=== PATIENT | female | born 1965 | race Caucasian/White ===

== ENCOUNTER → 2017-08-05 | Outpatient (CLI) | payer BC ==
--- NOTE | 2017-08-13 08:19 | MAMMOGRAPHY REPORT ---
BILATERAL DIGITAL DIAGNOSTIC MAMMOGRAM TOMOSYNTHESIS WITH CAD AND TARGETED RIGHT ULTRASOUND: 08/05/20 17 CLINICAL HISTORY: 52-year-old woman presents for follow-up in both breasts. She is status post ultra sound-guided cyst aspiration in the left 12:00 breast. She also presents for follow-up of benign-deborah earing complicated cyst in the 6:30 and 9:30 to 10:00 right breast. TECHNIQUE: Bilateral breast tomosynthesis in addition to standard 2D mammography was performed. Curre nt study was also evaluated with a Computer Aided Detection (CAD) system. COMPARISON: Comparison is made to exams dated: 08/05/2017 ultrasound, 04/28/2016 aspiration, 6 mammogram, 04/28/2016 ultrasound, 10/26/2015 mammogram - [facility], and 04/24/2015 mammogram. BREAST COMPOSITION: There are scattered areas of fibroglandular density in both breasts. FINDINGS: There are lobulated and circumscribed masses in the 6:00 middle to posterior right breast. The anterior mass measures 14 x 8 x 6 mm and the posterior mass measures 8 x 5 x 4 mm. No associate d architectural distortion or microcalcification. When comparing to prior available mammograms these are slightly more prominent than on the to 09/02/2016 exam, and are thought to correspond to the pos sible complicated cyst seen in the 6:30 right breast on ultrasound. Another lobulated mass in the la teral middle one third of the right breast on prior CC projection has significantly decreased in size , confirming benignity. This likely correlated with the cystic mass seen in the 9:30 to 10:00 right breast on targeted ultrasound. No new suspicious spiculated or irregular mass, asymmetry, or suspici ous microcavitation indications are seen bilaterally. Questionable areas of architectural distortion in the lateral posterior aspect of each breast on the CC views effaced with additional spot compress ion tomosynthesis images, confirming normal overlapping fibroglandular tissue. Targeted ultrasound was performed in the right breast 6:30 through 10:00 axes. In the 6:30 right dilshad ast, 4 cm from the nipple, a lobulated and circumscribed primarily anechoic cystic mass with internal nonvascular debris is noted measuring 5.0 x 3.7 x 3.9 mm, and an adjacent larger cyst cluster in the 6:30 right breast, 3 cm from the nipple measures 9.2 x 3.6 x 8.9 mm. These cysts and cyst clusters in the 6:30 breast are slightly increased in size but the larger portions are clearly anechoic and cy stic in nature and therefore considered benign. A tiny anechoic simple cyst is seen in the 9:00 righ t breast, 4 cm from the nipple, measuring 2.8 mm and a slightly larger anechoic simple cyst is seen i n the 10:00 right breast, 6 cm from the nipple, measuring 5.2 x 2.6 x 5.0 mm. The previously observe d possible complicated cyst in the 9:30 right breast on prior ultrasound is no longer seen, concordan t with the mammographic finding of a decreased lobulated mass in the far lateral right breast on the CC view. This confirms benignity. IMPRESSION: ACR BI-RADS CATEGORY 2: BENIGN, TARGETED ULTRASOUND ACR BI-RADS CATEGORY 2: BENIGN 1. Lobulated circumscribed masses in the lateral and 6:00 right breast seen mammographically corresp ond to benign cysts on ultrasound. Another previously identified lobulated mass in the lateral right breast has decreased in size confirming benignity. Overall, no mammographic or targeted sonographic evidence of malignancy. Recommend routine screening tomosynthesis mammography in one year. Approximately 10% of breast cancers are not detected with mammography. A negative mammographic report should not delay biopsy if a clinically suggestive mass is present. Colleen Silva M.D. ay/:08/05/2017 11:36:04 [employer] Internship: Stephanie MORA(Mey)(M), [facility] letter sent: Normal 1/2 BI-RADS Code: ACR BI-RADS Category 2: Benign Ultrasound BI-RADS: ACR BI-RADS Category 2: Benign
== END | disposition home or self-care (01) ==
LOC: C.MAMM 10:44
PROVIDERS: ATTEND Obstetrics & Gynecology
DX: N60.02 Solitary cyst of left breast (principal); N60.11 Diffuse cystic mastopathy of right breast